=== PATIENT | female | born 1945 | race American Indian/Alaskan Native ===

== ENCOUNTER 2021-04-14 06:40 | Day surgery (SDC) | payer MEDICARE ==
[2021-04-14] MEDS ORDERED: SODIUM CHLORIDE 0.9% 1000 ML 1,000 ML IV SCH (07:00)
--- NOTE | 2021-04-14 08:00 | Anesthesia Consultation ---
Anesthesia Consult and Med Hx Date of service: 04/14/21 - Airway Anesthetic Teeth Evaluation: Dentures (Upper) ROM Head & Neck: Adequate Mental/Hyoid Distance: Adequate Mallampati Class: Class II - Pulmonary Exam CTA: Yes - Pre-Operative Health Status ASA Pre-Surgery Classification: ASA3 Proposed Anesthetic Plan: MAC - Pulmonary Hx Smoking: No (Quit 15 years ago) Hx Respiratory Symptoms: Yes SOB: Yes COPD: Yes Home Oxygen Therapy: Yes (3 liters) - Cardiovascular System Hx Hypertension: Yes Hx Heart Attack/AMI: No Hx Cardia Arrhythmia: Yes (Atrial Fibrillation) Hx Pacemaker: No Hx Internal Defibrillator: No Hx Valvular Heart Disease: No - Central Nervous System Hx Neuromuscular Disorder: No Hx Seizures: No Hx Psychiatric Problems: Yes (anxiety) - Gastrointestinal Hx Ulcer: No (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
--- NOTE | 2021-04-14 08:22 | Anesthesia Day of Surgery ---
Anesthesia Day of Surgery - Day of Surgery Patient Examined: Yes Patient H&P Reviewed: Yes Patient is NPO: Yes Beta Blockers: No Cardiac Clearance: Yes
[2021-04-14] MEDS ORDERED: LIDOCAINE MPF (2%) 20 MG/1 ML VIAL 5 ML ONE (09:20)
[2021-04-14] MEDS ORDERED: propofoL 200 MG/20 ML VIAL IV ONE (09:20)
--- NOTE | 2021-04-14 09:55 | Procedure Note ---
Date of procedure: 04/14/21 Pre-op diagnosis: H/O Colon Polyps/ Colon Polyps Screening Post-op diagnosis: other (Recto-Sigmoid Polyps (possibly Hyperplastic); Extensive Diverticular disease (most pronounced in the Left Colon); Partial Colon Resection of the Proximal Colon; No Internal Hemorrhoids) Procedure: Colonoscopy with biopsy Anesthesia: [facility] [place] Surgeon: CHAZ SOLOMON Estimated blood loss: minimal Pathology: list Specimen disposition: to lab Condition: stable Disposition: same day (Avoid aspirin , NSAID and anticoagulants for 5 days; encourage fiber intake and otherwise resume home medication and F/U in 1 to 2 weeks ([phone]).)
--- NOTE | 2021-04-14 10:42 | Operative Report ---
DATE OF SURGERY: 04/14/2021 PROCEDURE PERFORMED: Colonoscopy and biopsy. INDICATIONS: This is a 75-year-old -[place] female with a prior history of colon polyp and has had partial colon resection involving the proximal colon. She had a colonoscopy done to make sure there was not any recurrence of any polyps. DESCRIPTION OF PROCEDURE: Procedure was done after getting informed consent with MAC anesthesia. Initial rectal exam was unremarkable. Instrument was passed through the rectum onto the anastomotic site in the proximal colon. Terminal ileum was intubated, showed normal mucosa. There were extensive scattered diverticula throughout the colon, most pronounced in the left colon. The proximal colon and the transverse colon showed a few scattered diverticula. More pronounced diverticula were noted in the left colon. In the rectosigmoid area, there were numerous small polyps noted that were removed by cold biopsy, possibly hyperplastic with minimal bleeding and the rectum did not show any internal hemorrhoid on the retroverted view. Some of the diverticula were quite deep, especially in the left colon. There was minimal bleeding associated with the polypectomy and no complications associated with the procedure. ASSESSMENT: Colon polyp screening; past history of colon polyp with partial proximal colon resection; multiple small rectal polyps, possibly hyperplastic; extensive diverticular disease, most pronounced in the left colon. No internal hemorrhoids present. The patient will be asked to avoid aspirin, aspirin-related products, and anticoagulants for the next 3-4 days. Advised to take fiber supplements and follow up in the office in 1-2 weeks' time. Procedure was done in the GI lab with the assistance of the GI lab team, which included the GI nurse, the ophthalmic technician apprentice and with assistance of anesthesia. TID: [id number] RECEIPT: [id number] CYN/TAVO
[2021-04-14 12:59] VITALS: BP 136/78
--- NOTE | 2021-04-14 17:02 | Post Anesthesia Evaluation ---
- Post Anesthesia Evaluation Patient Participated: Yes Airway Patent: Yes Stable Respiratory Function: Yes Nausea/Vomiting: No Temp > 96.8F: Yes Pain Manageable: Yes Adequeate Hydration: Yes Anesthesia Complications: No Block Receding Appropriately: Not Applicable Patient on Ventilator: No
== END 2021-04-14 10:45 | disposition home or self-care (01) ==
LOC: GIO 06:40
DX: Z12.11 Encounter for screening for malignant neoplasm of colon (principal); K57.30 Diverticulosis of large intestine without perforation or abscess without bleeding; K63.5 Polyp of colon; I10 Essential (primary) hypertension; J44.9 Chronic obstructive pulmonary disease, unspecified; E66.9 Obesity, unspecified; E03.9 Hypothyroidism, unspecified; K21.9 Gastro-esophageal reflux disease without esophagitis; F41.9 Anxiety disorder, unspecified; Z72.89 Other problems related to lifestyle; Z88.8 Allergy status to other drugs, medicaments and biological substances; Z87.891 Personal history of nicotine dependence; Z90.49 Acquired absence of other specified parts of digestive tract; Z86.010 Personal history of colon polyps
CPT/HCPCS: 45380; 88305; J2704; J3490; J7030; J7120; Q0162